=== PATIENT | male | born 1945 | race Caucasian/White ===

== ENCOUNTER 2017-09-14 13:43 | Inpatient (IN) ==
[2017-09-17 14:12] VITALS: BP 110/82
== END 2017-09-17 14:00 | disposition home or self-care (01) | DRG 378 ==
LOC: N.ED 13:43 → N.EDINP 15:31 → N.4E 16:35
PROVIDERS: ADMIT Family Medicine; ATTEND Family Medicine

== ENCOUNTER 2017-11-05 09:15 | Inpatient (IN) ==
[2017-11-05] MEDS ORDERED: PANTOPRAZOLE INJ 80 MG in SODIUM CHLORIDE 0.9% 100 ML IV STA (09:25)
[2017-11-05] MEDS ORDERED: SODIUM CHLORIDE 0.9% 1,000 ML IV STA (09:25)
[2017-11-05] MEDS ORDERED: PANTOPRAZOLE 40 MG VIAL IV ONE (09:53)
[2017-11-05 09:59] LABS: Basophils # 0.1 10*3/uL (0.0-0.2); Eosinophils # 0.1 10*3/uL (0.0-0.87); Hematocrit 32.6 VOL% (42.0-52.0); Hemoglobin 10.9 GM/DL (14.0-18.0); Immature Granulocytes % 7.7 %; Immature Granulocytes Absolute 0.47 #; Lymphocytes # 1.8 10*3/uL (1.4-4.0); Lymphocytes % 28.7 % (21.2-54.2); Mean Corpuscular HGB Conc 33.4 GM/DL (32-36); Mean Corpuscular Hemoglobin 30 PG (27-34); Mean Corpuscular Volume 90.8 FL (87-102); Monocytes # 0.9 10*3/uL (0.11-0.8); Monocytes % 15.1 % (1.7-12.7); Neutrophils # 2.9 10*3/uL (1.4-7.4); Neutrophils % 46.5 % (38.7-73.9); Platelet Count 130 T/CUMM (130-400); Red Blood Count 3.59 MC/CUMM (3.8-5.5); White Blood Count 6.1 T/CUMM (4-12)
[2017-11-05 10:12] LABS: INR 1.1; PT Patient Result 11.6 SECS; Partial Thromboplastin Time 26.6 SECS (0-40)
[2017-11-05 10:23] LABS: Albumin 3.5 G/DL (3.4-5.0); Bilirubin,Total 1.6 MG/DL (0.2-1.0); Calcium 8.9 MG/DL (8.5-10.1); Osmolality,Calculated 269.2 MOS/KG (273-304); Potassium 4.3 MMOL/L (3.5-5.1); Total Protein 7.9 G/DL (6.4-8.3)
[2017-11-05 10:48] LABS: Band Neutrophils 5 % (0-10); Eosinophils 2 % (0-10); Lymphocytes 28 % (20-55); Nucleated Red Blood Cells 1 (0-5); Platelet Estimate Adequate; Segmented Neutrophils 49 % (50-85); Total Cells Counted 100
[2017-11-05] MEDS ORDERED: ONDANSETRON 4 MG/2 ML VIAL IV PRN (10:48)
[2017-11-05] MEDS ORDERED: ACETAMINOPHEN 325 MG TABLET PO PRN (10:48)
[2017-11-05 10:49] LABS: Anisocytosis 1+; Macrocytosis Slight; Polychromasia Slight
[2017-11-05] MEDS ORDERED: SODIUM CHLORIDE 0.9% 1,000 ML IV PRN (10:53)
[2017-11-05 12:23] LABS: Hematocrit 29.8 VOL% (42.0-52.0); Hemoglobin 10.1 GM/DL (14.0-18.0)
[2017-11-05] MEDS: SODIUM CHLORIDE 0.9% 1,000 ML IV SCH ×2 (13:40→21:03)
[2017-11-05] MEDS: PANTOPRAZOLE INJ 200 MG in SODIUM CHLORIDE 0.9% 250 ML IV SCH (13:41)
[2017-11-05] MEDS: CARVEDILOL 3.125 MG TABLET PO SCH (21:03)
[2017-11-05] MEDS: DOCUSATE SODIUM 100 MG CAPSULE PO SCH (21:03)
[2017-11-06 01:01] LABS: Hematocrit 26.5 VOL% (42.0-52.0)
[2017-11-06] MEDS: SODIUM CHLORIDE 0.9% 1,000 ML IV SCH ×3 (05:07→18:29)
[2017-11-06 06:27] LABS: Hematocrit 26.4 VOL% (42.0-52.0); Hemoglobin 8.7 GM/DL (14.0-18.0)
[2017-11-06 06:28] LABS: Basophils % 0.8 % (0.0-0.8); Eosinophils % 0.8 % (0.00-10.9); Hematocrit 26.4 VOL% (42.0-52.0); Hemoglobin 8.8 GM/DL (14.0-18.0); Immature Granulocytes % 6.8 %; Immature Granulocytes Absolute 0.35 #; Lymphocytes # 1.5 10*3/uL (1.4-4.0); Lymphocytes % 28.4 % (21.2-54.2); Mean Corpuscular HGB Conc 33.3 GM/DL (32-36); Mean Corpuscular Hemoglobin 31 PG (27-34); Mean Corpuscular Volume 93.3 FL (87-102); Monocytes # 0.8 10*3/uL (0.11-0.8); Monocytes % 14.7 % (1.7-12.7); Neutrophils # 2.5 10*3/uL (1.4-7.4); Neutrophils % 48.5 % (38.7-73.9); Platelet Count 106 T/CUMM (130-400); Red Blood Count 2.83 MC/CUMM (3.8-5.5); Red Cell Distribution Width 15.4 % (9.3-17.3); White Blood Count 5.2 T/CUMM (4-12)
[2017-11-06 06:42] LABS: Calcium 8.2 MG/DL (8.5-10.1); Osmolality,Calculated 267.2 MOS/KG (273-304); Potassium 3.8 MMOL/L (3.5-5.1)
[2017-11-06 07:05] LABS: Band Neutrophils 1 % (0-10); Eosinophils 3 % (0-10); Lymphocytes 27 % (20-55); Nucleated Red Blood Cells 1 (0-5); Segmented Neutrophils 54 % (50-85); Total Cells Counted 100
[2017-11-06 07:06] LABS: Atypical Lymphocytes Few; Hypochromasia 1+; Macrocytosis Slight; Platelet Estimate Decreased
[2017-11-06] MEDS: MULTIVITAMIN (CENTRUM) TABLET PO SCH (08:49)
[2017-11-06] MEDS: POTASSIUM CHLORIDE 20 MEQ TABLET PO SCH (08:50)
[2017-11-06] MEDS: DOCUSATE SODIUM 100 MG CAPSULE PO SCH ×2 (08:50→23:24)
[2017-11-06] MEDS: SPIRONOLACTONE 25 MG TABLET PO SCH (08:50)
[2017-11-06] MEDS: CARVEDILOL 3.125 MG TABLET PO SCH ×2 (08:50→16:47)
[2017-11-06 12:20] LABS: Hematocrit 25.9 VOL% (42.0-52.0); Hemoglobin 8.5 GM/DL (14.0-18.0)
[2017-11-06] MEDS: PANTOPRAZOLE INJ 200 MG in SODIUM CHLORIDE 0.9% 250 ML IV SCH (14:15)
[2017-11-06 20:49] LABS: Hematocrit 33.3 VOL% (42.0-52.0)
[2017-11-07] MEDS: SODIUM CHLORIDE 0.9% 1,000 ML IV SCH ×2 (05:08→12:37)
[2017-11-07 05:16] LABS: Hematocrit 29.9 VOL% (42.0-52.0)
[2017-11-07] MEDS: MULTIVITAMIN (CENTRUM) TABLET PO SCH (08:26)
[2017-11-07] MEDS: DOCUSATE SODIUM 100 MG CAPSULE PO SCH ×2 (08:26→21:04)
[2017-11-07] MEDS: CARVEDILOL 3.125 MG TABLET PO SCH ×2 (08:26→17:29)
[2017-11-07] MEDS: SPIRONOLACTONE 25 MG TABLET PO SCH (08:26)
[2017-11-07] MEDS: POTASSIUM CHLORIDE 20 MEQ TABLET PO SCH (08:27)
[2017-11-07] MEDS ORDERED: LIDOCAINE 2% 5 ML VIAL ONE (09:00)
[2017-11-07] MEDS ORDERED: PROPOFOL 200 MG/20 ML VIAL IV ONE (09:00)
[2017-11-07] MEDS: PANTOPRAZOLE INJ 200 MG in SODIUM CHLORIDE 0.9% 250 ML IV SCH (12:37)
[2017-11-07] MEDS ORDERED: ALBUTEROL/IPRATROPIUM 3 ML NEB RESP TX ONE (13:08)
[2017-11-07 14:45] LABS: Basophils # 0.1 10*3/uL (0.0-0.2); Basophils % 0.6 % (0.0-0.8); Eosinophils % 0.3 % (0.00-10.9); Hematocrit 33.2 VOL% (42.0-52.0); Immature Granulocytes Absolute 0.54 #; Lymphocytes # 1.2 10*3/uL (1.4-4.0); Lymphocytes % 15.9 % (21.2-54.2); Mean Corpuscular HGB Conc 33.1 GM/DL (32-36); Mean Corpuscular Hemoglobin 31 PG (27-34); Mean Corpuscular Volume 93.3 FL (87-102); Mean Platelet Volume 11.1 FL (9.6-12.0); Monocytes % 12.3 % (1.7-12.7); Neutrophils # 4.9 10*3/uL (1.4-7.4); Neutrophils % 63.9 % (38.7-73.9); Platelet Count 105 T/CUMM (130-400); Red Blood Count 3.56 MC/CUMM (3.8-5.5); White Blood Count 7.7 T/CUMM (4-12)
[2017-11-07 15:22] LABS: Troponin I 0.043 NG/ML (0.00-0.045)
[2017-11-07 18:56] LABS: Anisocytosis 1+; Lymphocytes 14 % (20-55); Segmented Neutrophils 72 % (50-85); Total Cells Counted 100
[2017-11-07 18:58] LABS: Polychromasia Few
[2017-11-07 19:00] LABS: Schistocytes Slight
[2017-11-07 19:01] LABS: Burr Cells Slight
[2017-11-07 20:01] LABS: Hematocrit 31.3 VOL% (42.0-52.0); Hemoglobin 10.6 GM/DL (14.0-18.0)
[2017-11-08] MEDS: SODIUM CHLORIDE 0.9% 1,000 ML IV SCH ×3 (03:09→13:16)
[2017-11-08 04:39] LABS: Hematocrit 29.2 VOL% (42.0-52.0); Hemoglobin 9.6 GM/DL (14.0-18.0)
[2017-11-08] MEDS: SPIRONOLACTONE 25 MG TABLET PO SCH (09:30)
[2017-11-08] MEDS: CARVEDILOL 3.125 MG TABLET PO SCH ×2 (09:30→16:28)
[2017-11-08] MEDS: DOCUSATE SODIUM 100 MG CAPSULE PO SCH ×2 (09:30→21:41)
[2017-11-08] MEDS: POTASSIUM CHLORIDE 20 MEQ TABLET PO SCH (09:30)
[2017-11-08] MEDS: MULTIVITAMIN (CENTRUM) TABLET PO SCH (09:30)
[2017-11-08] MEDS: LORATADINE 10 MG TABLET PO SCH (16:19)
[2017-11-08] MEDS: PANTOPRAZOLE 40 MG VIAL IV SCH (21:41)
[2017-11-09 04:37] LABS: Basophils % 0.6 % (0.0-0.8); Eosinophils # 0.1 10*3/uL (0.0-0.87); Eosinophils % 1.2 % (0.00-10.9); Hemoglobin 9.2 GM/DL (14.0-18.0); Immature Granulocytes % 4.6 %; Immature Granulocytes Absolute 0.23 #; Lymphocytes # 1.6 10*3/uL (1.4-4.0); Lymphocytes % 31.7 % (21.2-54.2); Mean Corpuscular HGB Conc 32.9 GM/DL (32-36); Mean Corpuscular Hemoglobin 31 PG (27-34); Mean Platelet Volume 11.6 FL (9.6-12.0); Monocytes % 20.9 % (1.7-12.7); Platelet Count 95 T/CUMM (130-400); Red Blood Count 3.01 MC/CUMM (3.8-5.5)
[2017-11-09 05:06] LABS: Potassium 3.5 MMOL/L (3.5-5.1)
[2017-11-09 05:15] LABS: Lymphocytes 23 % (20-55); Platelet Estimate Decreased; Segmented Neutrophils 56 % (50-85); Total Cells Counted 100
[2017-11-09 05:16] LABS: Hypochromasia 1+
[2017-11-09] MEDS ORDERED: MAGNESIUM SULF RIDER 2 GM in PREMIX 1 EACH IV PRN (07:36)
[2017-11-09] MEDS ORDERED: MAGNESIUM SULF RIDER 4 GM in PREMIX 1 EACH IV PRN (07:36)
[2017-11-09] MEDS: SODIUM CHLORIDE 0.9% 1,000 ML IV SCH (07:50)
[2017-11-09] MEDS: POTASSIUM CHLORIDE 20 MEQ TABLET PO SCH (08:47)
[2017-11-09] MEDS: CARVEDILOL 3.125 MG TABLET PO SCH (08:47)
[2017-11-09] MEDS: SPIRONOLACTONE 25 MG TABLET PO SCH (08:47)
[2017-11-09] MEDS: LORATADINE 10 MG TABLET PO SCH (08:47)
[2017-11-09] MEDS: DOCUSATE SODIUM 100 MG CAPSULE PO SCH (08:47)
[2017-11-09] MEDS: MULTIVITAMIN (CENTRUM) TABLET PO SCH (08:47)
[2017-11-09] MEDS: PANTOPRAZOLE 40 MG VIAL IV SCH (08:58)
[2017-11-09] MEDS ORDERED: MAGNESIUM CHLORIDE 64 MG TABLET PO SCH (09:00)
[2017-11-09 11:31] VITALS: BP 122/75
== END 2017-11-09 11:58 | disposition home or self-care (01) | DRG 378 ==
LOC: N.ED 09:15 → N.EDINP 10:48 → N.TELES 11:52
PROVIDERS: ADMIT Family Medicine; ATTEND Family Medicine

== ENCOUNTER 2018-12-06 14:53 | Observation (INO) ==
[2018-12-06 15:38] LABS: Basophils # 0.1 10*3/uL (0.0-0.2); Basophils % 0.7 % (0.0-0.8); Eosinophils # 0.1 10*3/uL (0.0-0.87); Eosinophils % 0.7 % (0.00-10.9); Hematocrit 36.7 VOL% (42.0-52.0); Hemoglobin 11.9 GM/DL (14.0-18.0); Immature Granulocytes % 1.6 %; Immature Granulocytes Absolute 0.12 #; Lymphocytes # 1.7 10*3/uL (1.4-4.0); Lymphocytes % 22.8 % (21.2-54.2); Mean Corpuscular HGB Conc 32.4 GM/DL (32-36); Mean Corpuscular Volume 93.6 FL (87-102); Mean Platelet Volume 10.5 FL (9.6-12.0); Neutrophils % 64.2 % (38.7-73.9); Platelet Count 161 T/CUMM (130-400); Red Blood Count 3.92 MC/CUMM (3.8-5.5); Red Cell Distribution Width 17.2 % (9.3-17.3); White Blood Count 7.6 T/CUMM (4-12)
[2018-12-06 16:08] LABS: Apearance,Urine CLEAR (Clear); Bilirubin,Urine Negative (Negative); Blood, Urine Negative (Negative); Glucose,Urine (UA) Negative (Negative); Ketones,Urine Negative (Negative); Mucus,Urine Occasional /LPF (Occasional); Nitrite,Urine Negative (Negative); Protein,Urine Negative; RBC,Urine 1 /HPF (0-4); Squamous Epithelial Cell,Urine Occasional /HPF (0-10); Urine Color Amber (Yellow); Urine Specific Gravity 1.018 (1.001-1.035); WBC,Urine <1 /HPF (0-6)
[2018-12-06 16:15] LABS: Albumin 3.2 G/DL (3.4-5.0); Bilirubin,Total 1.8 MG/DL (0.2-1.0); Calcium 8.3 MG/DL (8.5-10.1); Osmolality,Calculated 265.2 MOS/KG (273-304); Total Protein 7.9 G/DL (6.4-8.3)
[2018-12-06 17:31] LABS: Troponin I < 0.015 NG/ML (0.00-0.045)
[2018-12-06] MEDS ORDERED: ONDANSETRON 4 MG/2 ML VIAL IV PRN (17:45)
[2018-12-06] MEDS ORDERED: ACETAMINOPHEN 325 MG TABLET PO PRN (17:45)
[2018-12-06] MEDS ORDERED: KETOROLAC 30 MG/1 ML VIAL IV ONE (17:49)
[2018-12-06] MEDS ORDERED: POLYETHYLENE GLYCOL POWDER 17 GM PACK PO PRN (19:19)
[2018-12-06] MEDS ORDERED: ENOXAPARIN 40 MG/0.4 ML SYRINGE SUBCUT SCH (21:00)
[2018-12-07 03:00] LABS: Basophils % 0.5 % (0.0-0.8); Eosinophils # 0.1 10*3/uL (0.0-0.87); Eosinophils % 1.1 % (0.00-10.9); Hematocrit 33.5 VOL% (42.0-52.0); Immature Granulocytes % 1.5 %; Immature Granulocytes Absolute 0.11 #; Lymphocytes # 1.9 10*3/uL (1.4-4.0); Lymphocytes % 25.6 % (21.2-54.2); Mean Corpuscular HGB Conc 32.8 GM/DL (32-36); Mean Corpuscular Volume 92.3 FL (87-102); Mean Platelet Volume 10.6 FL (9.6-12.0); Monocytes % 9.1 % (1.7-12.7); Neutrophils % 62.2 % (38.7-73.9); Platelet Count 134 T/CUMM (130-400); Red Blood Count 3.63 MC/CUMM (3.8-5.5); Red Cell Distribution Width 16.9 % (9.3-17.3); White Blood Count 7.3 T/CUMM (4-12)
[2018-12-07 03:20] LABS: Osmolality,Calculated 265.2 MOS/KG (273-304)
[2018-12-07 08:09] VITALS: BP 133/74
[2018-12-07] MEDS ORDERED: PANTOPRAZOLE 40 MG TABLET PO SCH (09:00)
[2018-12-07] MEDS ORDERED: POTASSIUM CHLORIDE 20 MEQ TABLET PO SCH (09:00)
[2018-12-07] MEDS ORDERED: SPIRONOLACTONE 25 MG TABLET PO SCH (09:00)
[2018-12-07] MEDS ORDERED: carvediloL 3.125 MG TABLET PO SCH (09:00)
== END 2018-12-07 10:55 | disposition home or self-care (01) ==
LOC: N.EDINP 14:53 → N.ED 14:53 → N.2W 18:04
PROVIDERS: ADMIT Internal Medicine Geriatric Medicine; ATTEND Internal Medicine Geriatric Medicine

== ENCOUNTER 2019-01-24 00:25 | Inpatient (IN) ==
[2019-01-24 01:27] LABS: Basophils # 0.1 10*3/uL (0.0-0.2); Basophils % 0.2 % (0.0-0.8); Eosinophils % 0.1 % (0.00-10.9); Hematocrit 38.8 VOL% (42.0-52.0); Hemoglobin 12.9 GM/DL (14.0-18.0); Immature Granulocytes % 1.1 %; Immature Granulocytes Absolute 0.23 #; Lymphocytes # 0.4 10*3/uL (1.4-4.0); Lymphocytes % 1.7 % (21.2-54.2); Mean Corpuscular HGB Conc 33.2 GM/DL (32-36); Mean Corpuscular Volume 91.9 FL (87-102); Mean Platelet Volume 10.1 FL (9.6-12.0); Neutrophils % 95.9 % (38.7-73.9); Platelet Count 121 T/CUMM (130-400); Red Blood Count 4.22 MC/CUMM (3.8-5.5); White Blood Count 21.7 T/CUMM (4-12)
[2019-01-24 01:45] LABS: Albumin 3.3 G/DL (3.4-5.0); Bilirubin,Total 8.6 MG/DL (0.2-1.0); Calcium 8.1 MG/DL (8.5-10.1); Osmolality,Calculated 262.7 MOS/KG (273-304); Total Protein 7.5 G/DL (6.4-8.3)
[2019-01-24] MEDS ORDERED: LACTATED RINGERS 1,000 ML IV ONE (01:51)
[2019-01-24] MEDS ORDERED: SODIUM CHLORIDE 0.9% 1,000 ML IV STA (01:55)
[2019-01-24] MEDS ORDERED: SODIUM BICARBONATE 50 MEQ/50 ML VIAL IV ONE (01:56)
[2019-01-24] MEDS ORDERED: SODIUM BICARBONATE 50 MEQ/50 ML VIAL IV STA (01:56)
[2019-01-24] MEDS ORDERED: PIPERACILLIN/TAZOBACTAM 3,375 MG in SODIUM CHLORIDE 0.9% 100 ML IV STA (03:07)
[2019-01-24] MEDS ORDERED: ONDANSETRON 4 MG/2 ML VIAL IV STA (03:19)
[2019-01-24] MEDS ORDERED: HYDROmorphone 2 MG/1 ML VIAL IV ONE (03:19)
[2019-01-24] MEDS ORDERED: ONDANSETRON 4 MG/2 ML VIAL ONE (03:20)
[2019-01-24] MEDS ORDERED: HYDROmorphone 2 MG/1 ML VIAL ONE (03:20)
[2019-01-24] MEDS ORDERED: ALUM/MAG/SIMETH/LIDO VISC 1:1 30 ML BOTTLE PO ONE (03:21)
[2019-01-24 03:33] LABS: Apearance,Urine CLEAR (Clear); Blood, Urine Small mg/dL (Negative); Glucose,Urine (UA) Negative (Negative); Hyaline Casts,Urine 11 /LPF (0-3); Ketones,Urine Negative (Negative); Mucus,Urine Occasional /LPF (Occasional); Nitrite,Urine Negative (Negative); Protein,Urine Negative; RBC,Urine 5 /HPF (0-4); Squamous Epithelial Cell,Urine Occasional /HPF (0-10); Urine Color Amber (Yellow); Urine Specific Gravity 1.048 (1.001-1.035); WBC,Urine 14 /HPF (0-6)
[2019-01-24 03:36] LABS: Bilirubin,Urine Small mg/dL (Negative)
[2019-01-24] MEDS ORDERED: ONDANSETRON 4 MG/2 ML VIAL IV PRN (03:45)
[2019-01-24] MEDS ORDERED: POLYETHYLENE GLYCOL POWDER 17 GM PACK PO PRN (03:45)
[2019-01-24] MEDS ORDERED: ACETAMINOPHEN 325 MG TABLET PO PRN (03:45)
[2019-01-24 03:53] LABS: Hypochromasia 1+; Lymphocytes 1 % (20-55); Platelet Estimate Decreased; Polychromasia Few; Segmented Neutrophils 98 % (50-85); Total Cells Counted 100
[2019-01-24] MEDS: SODIUM CHLORIDE 0.9% 1,000 ML IV SCH ×2 (04:26→18:00)
[2019-01-24 05:34] LABS: Basophils % 0.2 % (0.0-0.8); Eosinophils % 0.1 % (0.00-10.9); Hematocrit 34.5 VOL% (42.0-52.0); Hemoglobin 11.4 GM/DL (14.0-18.0); Immature Granulocytes % 0.9 %; Immature Granulocytes Absolute 0.17 #; Lymphocytes # 0.7 10*3/uL (1.4-4.0); Lymphocytes % 3.5 % (21.2-54.2); Mean Platelet Volume 10.5 FL (9.6-12.0); Neutrophils % 92.3 % (38.7-73.9); Platelet Count 101 T/CUMM (130-400); Red Blood Count 3.75 MC/CUMM (3.8-5.5); Red Cell Distribution Width 16.9 % (9.3-17.3); White Blood Count 19.2 T/CUMM (4-12)
[2019-01-24 05:56] LABS: Band Neutrophils 1 % (0-10); Lymphocytes 4 % (20-55); Segmented Neutrophils 93 % (50-85); Total Cells Counted 100
[2019-01-24 05:58] LABS: Hypochromasia 1+; Platelet Estimate Decreased
[2019-01-24 06:04] LABS: Albumin 2.7 G/DL (3.4-5.0); Bilirubin,Total 7.5 MG/DL (0.2-1.0); Calcium 7.2 MG/DL (8.5-10.1); Osmolality,Calculated 266.4 MOS/KG (273-304); Risk Ratio 1.46; Total Protein 6.2 G/DL (6.4-8.3); VLDL CHOLESTEROL 9.4 MG/DL
[2019-01-24 06:05] LABS: Troponin I < 0.015 NG/ML (0.00-0.045)
[2019-01-24] MEDS ORDERED: PANTOPRAZOLE 40 MG TABLET PO SCH (09:00)
[2019-01-24] MEDS: ENOXAPARIN 40 MG/0.4 ML SYRINGE SUBCUT SCH (09:07)
[2019-01-24] MEDS: carvediloL 3.125 MG TABLET PO SCH ×2 (09:07→17:27)
[2019-01-24] MEDS: PANTOPRAZOLE 40 MG TABLET PO SCH (09:07)
[2019-01-24] MEDS: POTASSIUM CHLORIDE 20 MEQ TABLET PO SCH (09:07)
[2019-01-24] MEDS: SPIRONOLACTONE 25 MG TABLET PO SCH (09:07)
[2019-01-24] MEDS: DOCUSATE SODIUM 100 MG CAPSULE PO SCH ×2 (09:07→20:28)
[2019-01-24] MEDS: PIPERACILLIN/TAZOBACTAM 3,375 MG in SODIUM CHLORIDE 0.9% 100 ML IV SCH ×2 (11:35→20:29)
[2019-01-24] MEDS: HYDROmorphone 2 MG/1 ML VIAL IV PRN ×2 (18:49→23:49)
[2019-01-25] MEDS: PIPERACILLIN/TAZOBACTAM 3,375 MG in SODIUM CHLORIDE 0.9% 100 ML IV SCH ×3 (04:26→20:06)
[2019-01-25] MEDS: LORazepam 2 MG/1 ML VIAL IV PRN ×2 (05:54→17:57)
[2019-01-25] MEDS: HYDROmorphone 2 MG/1 ML VIAL IV PRN ×3 (05:54→17:57)
[2019-01-25 06:19] LABS: Albumin 2.5 G/DL (3.4-5.0); Bilirubin,Direct 4.57 MG/DL (0.0-0.20); Bilirubin,Indirect 2.1 MG/DL (0.0-1.0); Bilirubin,Total 6.7 MG/DL (0.2-1.0); Total Protein 6.4 G/DL (6.4-8.3)
[2019-01-25] MEDS ORDERED: MAGNESIUM SULF RIDER 4 GM in PREMIX 1 EACH IV ONE (06:43)
[2019-01-25] MEDS: SODIUM CHLORIDE 0.9% 1,000 ML IV SCH ×2 (07:22→20:20)
[2019-01-25] MEDS: PANTOPRAZOLE 40 MG TABLET PO SCH (09:05)
[2019-01-25] MEDS: SPIRONOLACTONE 25 MG TABLET PO SCH (09:05)
[2019-01-25] MEDS: POTASSIUM CHLORIDE 20 MEQ TABLET PO SCH (09:05)
[2019-01-25] MEDS: carvediloL 3.125 MG TABLET PO SCH ×2 (09:05→16:42)
[2019-01-25] MEDS: DOCUSATE SODIUM 100 MG CAPSULE PO SCH ×2 (09:06→21:25)
[2019-01-25] MEDS: ENOXAPARIN 40 MG/0.4 ML SYRINGE SUBCUT SCH (09:06)
[2019-01-25] MEDS: THIAMINE 200 MG/2 ML VIAL IV SCH (09:06)
[2019-01-25 09:07] LABS: Basophils % 0.3 % (0.0-0.8); Eosinophils % 0.2 % (0.00-10.9); Hematocrit 34.8 VOL% (42.0-52.0); Hemoglobin 11.3 GM/DL (14.0-18.0); Immature Granulocytes Absolute 0.09 #; Lymphocytes # 0.7 10*3/uL (1.4-4.0); Lymphocytes % 7.6 % (21.2-54.2); Mean Corpuscular HGB Conc 32.5 GM/DL (32-36); Mean Corpuscular Volume 93.8 FL (87-102); Mean Platelet Volume 11.1 FL (9.6-12.0); Monocytes % 2.9 % (1.7-12.7); Red Blood Count 3.71 MC/CUMM (3.8-5.5); Red Cell Distribution Width 17.2 % (9.3-17.3)
[2019-01-25 09:12] LABS: Platelet Count 91 T/CUMM (130-400); White Blood Count 9.1 T/CUMM (4-12)
[2019-01-25 09:17] LABS: INR 1.2; PT Patient Result 12.5 SECS (9.6-12.2)
[2019-01-25 09:34] LABS: Calcium 7.4 MG/DL (8.5-10.1); Osmolality,Calculated 269.1 MOS/KG (273-304)
[2019-01-25 09:46] LABS: Hypochromasia Slight; Microcytosis Slight
[2019-01-25 11:01] LABS: Hepatitis B Core IgM Quant < 0.05 Index; Hepatitis B Surface Ag Quant 0.11 Index; Hepatitis B Surface Ag Result Negative (Negative); Hepatitis C Virus Ab Quant 0.21 Index; Hepatitis C Virus Ab Result Negative (Negative)
[2019-01-26] MEDS: PIPERACILLIN/TAZOBACTAM 3,375 MG in SODIUM CHLORIDE 0.9% 100 ML IV SCH ×3 (04:05→20:01)
[2019-01-26] MEDS: LORazepam 2 MG/1 ML VIAL IV PRN (07:50)
[2019-01-26] MEDS: HYDROmorphone 2 MG/1 ML VIAL IV PRN ×2 (07:54→19:24)
[2019-01-26] MEDS: THIAMINE 200 MG/2 ML VIAL IV SCH (09:20)
[2019-01-26] MEDS: ENOXAPARIN 40 MG/0.4 ML SYRINGE SUBCUT SCH (09:20)
[2019-01-26] MEDS: POTASSIUM CHLORIDE 20 MEQ TABLET PO SCH (09:20)
[2019-01-26] MEDS: DOCUSATE SODIUM 100 MG CAPSULE PO SCH ×2 (09:20→20:01)
[2019-01-26] MEDS: SPIRONOLACTONE 25 MG TABLET PO SCH (09:20)
[2019-01-26] MEDS: carvediloL 3.125 MG TABLET PO SCH ×2 (09:20→16:28)
[2019-01-26] MEDS: PANTOPRAZOLE 40 MG TABLET PO SCH (09:26)
[2019-01-26] MEDS: SODIUM CHLORIDE 0.9% 1,000 ML IV SCH ×2 (11:41→22:27)
[2019-01-27] MEDS: PIPERACILLIN/TAZOBACTAM 3,375 MG in SODIUM CHLORIDE 0.9% 100 ML IV SCH ×3 (04:09→19:46)
[2019-01-27 05:06] LABS: Basophils % 0.5 % (0.0-0.8); Eosinophils # 0.1 10*3/uL (0.0-0.87); Eosinophils % 1.5 % (0.00-10.9); Hemoglobin 10.8 GM/DL (14.0-18.0); Immature Granulocytes % 2.4 %; Lymphocytes # 0.9 10*3/uL (1.4-4.0); Mean Corpuscular HGB Conc 32.7 GM/DL (32-36); Mean Corpuscular Volume 92.7 FL (87-102); Mean Platelet Volume 10.7 FL (9.6-12.0); Monocytes % 7.7 % (1.7-12.7); Neutrophils % 65.9 % (38.7-73.9); Platelet Count 103 T/CUMM (130-400); Red Blood Count 3.56 MC/CUMM (3.8-5.5); Red Cell Distribution Width 16.7 % (9.3-17.3); White Blood Count 4.1 T/CUMM (4-12)
[2019-01-27 05:37] LABS: Albumin 2.5 G/DL (3.4-5.0); Bilirubin,Direct 4.52 MG/DL (0.0-0.20); Bilirubin,Indirect 1.4 MG/DL (0.0-1.0); Bilirubin,Total 5.9 MG/DL (0.2-1.0); Total Protein 6.6 G/DL (6.4-8.3)
[2019-01-27] MEDS: SPIRONOLACTONE 25 MG TABLET PO SCH (09:07)
[2019-01-27] MEDS: POTASSIUM CHLORIDE 20 MEQ TABLET PO SCH (09:07)
[2019-01-27] MEDS: THIAMINE 200 MG/2 ML VIAL IV SCH (09:07)
[2019-01-27] MEDS: carvediloL 3.125 MG TABLET PO SCH ×2 (09:07→16:40)
[2019-01-27] MEDS: PANTOPRAZOLE 40 MG TABLET PO SCH (09:07)
[2019-01-27] MEDS: DOCUSATE SODIUM 100 MG CAPSULE PO SCH ×2 (09:07→20:00)
[2019-01-27] MEDS: ENOXAPARIN 40 MG/0.4 ML SYRINGE SUBCUT SCH (09:07)
[2019-01-27] MEDS ORDERED: CLORAZEPATE 3.75 MG TABLET PO PRN (11:51)
[2019-01-27] MEDS: SODIUM CHLORIDE 0.9% 1,000 ML IV SCH (12:57)
[2019-01-28] MEDS: SODIUM CHLORIDE 0.9% 1,000 ML IV SCH ×2 (01:34→18:58)
[2019-01-28] MEDS: PIPERACILLIN/TAZOBACTAM 3,375 MG in SODIUM CHLORIDE 0.9% 100 ML IV SCH ×3 (03:38→20:38)
[2019-01-28 05:47] LABS: INR 1.1; PT Patient Result 11.6 SECS (9.6-12.2)
[2019-01-28] MEDS: carvediloL 3.125 MG TABLET PO SCH ×2 (10:24→17:10)
[2019-01-28] MEDS: SPIRONOLACTONE 25 MG TABLET PO SCH (10:24)
[2019-01-28] MEDS: ENOXAPARIN 40 MG/0.4 ML SYRINGE SUBCUT SCH (10:25)
[2019-01-28] MEDS: DOCUSATE SODIUM 100 MG CAPSULE PO SCH ×2 (10:25→20:39)
[2019-01-28] MEDS: POTASSIUM CHLORIDE 20 MEQ TABLET PO SCH (10:25)
[2019-01-28] MEDS: PANTOPRAZOLE 40 MG TABLET PO SCH (10:25)
[2019-01-28] MEDS: THIAMINE 200 MG/2 ML VIAL IV SCH (10:29)
[2019-01-29] MEDS: PIPERACILLIN/TAZOBACTAM 3,375 MG in SODIUM CHLORIDE 0.9% 100 ML IV SCH ×2 (03:34→14:36)
[2019-01-29] MEDS: SODIUM CHLORIDE 0.9% 1,000 ML IV SCH (03:37)
[2019-01-29 07:45] LABS: Calcium 8.2 MG/DL (8.5-10.1); Osmolality,Calculated 268.8 MOS/KG (273-304)
[2019-01-29] MEDS ORDERED: MAGNESIUM SULF RIDER 4 GM in PREMIX 1 EACH IV ONE (08:05)
[2019-01-29] MEDS: THIAMINE 200 MG/2 ML VIAL IV SCH (08:31)
[2019-01-29] MEDS: carvediloL 3.125 MG TABLET PO SCH (08:31)
[2019-01-29] MEDS: ENOXAPARIN 40 MG/0.4 ML SYRINGE SUBCUT SCH (08:31)
[2019-01-29] MEDS: POTASSIUM CHLORIDE 20 MEQ TABLET PO SCH (08:31)
[2019-01-29] MEDS: PANTOPRAZOLE 40 MG TABLET PO SCH (08:31)
[2019-01-29] MEDS: DOCUSATE SODIUM 100 MG CAPSULE PO SCH (08:31)
[2019-01-29] MEDS: SPIRONOLACTONE 25 MG TABLET PO SCH (08:31)
[2019-01-29] MEDS ORDERED: MAGNESIUM OXIDE 400 MG TABLET PO SCH (09:00)
[2019-01-29] MEDS ORDERED: LIDOCAINE 2% 5 ML VIAL ONE (13:08)
[2019-01-29] MEDS ORDERED: PROPOFOL 200 MG/20 ML VIAL IV ONE (13:08)
[2019-01-29 17:10] VITALS: BP 138/78
== END 2019-01-29 18:13 | disposition home or self-care (01) | DRG 445 ==
LOC: N.ED 00:25 → N.EDINP 03:22 → N.CC 03:44 → N.TELEN 01-25 17:35
PROVIDERS: ADMIT Family Medicine; ATTEND Family Medicine

== ENCOUNTER 2019-08-09 10:07 | Inpatient (IN) ==
[2019-08-09 10:45] LABS: Basophils % 0.3 % (0.0-0.8); Eosinophils % 0.1 % (0.00-10.9); Hemoglobin 12.7 GM/DL (14.0-18.0); Immature Granulocytes % 0.8 %; Immature Granulocytes Absolute 0.11 #; Lymphocytes # 0.5 10*3/uL (1.4-4.0); Lymphocytes % 3.9 % (21.2-54.2); Mean Corpuscular HGB Conc 33.4 GM/DL (32-36); Mean Corpuscular Volume 88.4 FL (87-102); Neutrophils % 91.9 % (38.7-73.9); Platelet Count 138 T/CUMM (130-400); Red Cell Distribution Width 14.9 % (9.3-17.3); White Blood Count 13.9 T/CUMM (4-12)
[2019-08-09 10:52] LABS: Apearance,Urine CLEAR (Clear); Bacteria,Urine Occasional /HPF (Few); Blood, Urine Small mg/dL (Negative); Glucose,Urine (UA) Negative (Negative); Ketones,Urine Negative (Negative); Mucus,Urine Occasional /LPF (Occasional); Nitrite,Urine Negative (Negative); Protein,Urine 30 MG/DL; RBC,Urine 2 /HPF (0-4); Squamous Epithelial Cell,Urine Occasional /HPF (0-10); Urine Color Amber (Yellow); WBC,Urine 13 /HPF (0-6)
[2019-08-09 10:54] LABS: Bilirubin,Urine Moderate mg/dL (Negative)
[2019-08-09 11:12] LABS: Albumin 3.5 G/DL (3.4-5.0); Bilirubin,Total 9.3 MG/DL (0.2-1.0); Calcium 8.5 MG/DL (8.5-10.1); Osmolality,Calculated 262.1 MOS/KG (273-304); Total Protein 7.5 G/DL (6.4-8.3)
[2019-08-09] MEDS ORDERED: SODIUM CHLORIDE 0.9% 1,000 ML IV STA (11:17)
[2019-08-09 11:39] LABS: Barbiturates Screen,Urine Negative (Negative); Benzodiazepines Screen,Urine Negative (Negative); Cannabinoid Screen,Urine Negative (Negative); Opiate Screen,Urine Negative (Negative); Phencyclidine Screen,Urine Negative (Negative)
[2019-08-09 12:00] LABS: Lymphocytes 5 % (20-55); Platelet Estimate Adequate; Segmented Neutrophils 92 % (50-85); Total Cells Counted 100
[2019-08-09 12:01] LABS: Polychromasia Few
[2019-08-09] MEDS ORDERED: MAGNESIUM SULF RIDER 1 GM in PREMIX 1 EACH IV STA (12:14)
[2019-08-09] MEDS ORDERED: PIPERACILLIN/TAZOBACTAM 3,375 MG in SODIUM CHLORIDE 0.9% 100 ML IV STA (12:18)
[2019-08-09] MEDS ORDERED: DEXTROSE 10% 250 ML BAG IV PRN (14:24)
[2019-08-09] MEDS ORDERED: MORPHINE 4 MG/1 ML VIAL IV PRN (14:24)
[2019-08-09] MEDS ORDERED: GLUCAGON 1 MG VIAL IM PRN (14:24)
[2019-08-09] MEDS ORDERED: ONDANSETRON 4 MG/2 ML VIAL IV PRN (14:24)
[2019-08-09] MEDS: SODIUM CHLORIDE 0.9% 1,000 ML IV SCH (14:45)
[2019-08-09] MEDS: ENOXAPARIN 30 MG/0.3 ML SYRINGE SUBCUT SCH (14:45)
[2019-08-09] MEDS: LORazepam 2 MG/1 ML VIAL IV PRN (18:25)
[2019-08-09] MEDS: PIPERACILLIN/TAZOBACTAM 3,375 MG in SODIUM CHLORIDE 0.9% 100 ML IV SCH (20:52)
[2019-08-10] MEDS: SODIUM CHLORIDE 0.9% 1,000 ML IV SCH ×3 (03:41→20:13)
[2019-08-10] MEDS: PIPERACILLIN/TAZOBACTAM 3,375 MG in SODIUM CHLORIDE 0.9% 100 ML IV SCH ×2 (04:44→15:58)
[2019-08-10 06:15] LABS: Basophils % 0.6 % (0.0-0.8); Eosinophils % 0.3 % (0.00-10.9); Hematocrit 35.1 VOL% (42.0-52.0); Hemoglobin 11.6 GM/DL (14.0-18.0); Immature Granulocytes % 1.6 %; Immature Granulocytes Absolute 0.11 #; Lymphocytes % 14.7 % (21.2-54.2); Mean Corpuscular Volume 88.2 FL (87-102); Mean Platelet Volume 11.2 FL (9.6-12.0); Monocytes % 6.2 % (1.7-12.7); Neutrophils % 76.6 % (38.7-73.9); Platelet Count 117 T/CUMM (130-400); Red Blood Count 3.98 MC/CUMM (3.8-5.5); Red Cell Distribution Width 15.3 % (9.3-17.3); White Blood Count 6.9 T/CUMM (4-12)
[2019-08-10 06:24] LABS: Albumin 2.7 G/DL (3.4-5.0); Bilirubin,Total 9.8 MG/DL (0.2-1.0); Calcium 8.2 MG/DL (8.5-10.1); Osmolality,Calculated 261.8 MOS/KG (273-304); Risk Ratio 5.92; VLDL CHOLESTEROL 28.2 MG/DL
[2019-08-10 06:54] LABS: Anisocytosis 1+; Band Neutrophils 5 % (0-10); Lymphocytes 19 % (20-55); Platelet Estimate Adequate; Segmented Neutrophils 72 % (50-85); Total Cells Counted 100
[2019-08-10 06:55] LABS: Macrocytosis Slight
[2019-08-10] MEDS: THIAMINE 200 MG/2 ML VIAL IM SCH (09:52)
[2019-08-10] MEDS ORDERED: MAGNESIUM SULF RIDER 2 GM in PREMIX 1 EACH IV ONE (10:13)
[2019-08-10] MEDS ORDERED: POTASSIUM CHLORIDE RIDER 20 MEQ in PREMIX 1 EACH IV PRN (10:13)
[2019-08-10 11:23] LABS: INR 1.2; Partial Thromboplastin Time 34.6 SECS (23.9-33.8)
[2019-08-10] MEDS: ENOXAPARIN 30 MG/0.3 ML SYRINGE SUBCUT SCH (15:58)
[2019-08-10] MEDS: carvediloL 3.125 MG TABLET PO SCH (20:15)
[2019-08-10] MEDS: POTASSIUM CHLORIDE RIDER 10 MEQ in PREMIX 1 EACH IV PRN ×4 (20:15→23:17)
[2019-08-11] MEDS: PIPERACILLIN/TAZOBACTAM 3,375 MG in SODIUM CHLORIDE 0.9% 100 ML IV SCH ×3 (00:20→16:52)
[2019-08-11 03:51] LABS: Basophils % 0.7 % (0.0-0.8); Eosinophils # 0.1 10*3/uL (0.0-0.87); Hematocrit 32.5 VOL% (42.0-52.0); Immature Granulocytes % 2.2 %; Immature Granulocytes Absolute 0.13 #; Lymphocytes % 16.8 % (21.2-54.2); Mean Corpuscular HGB Conc 33.8 GM/DL (32-36); Mean Corpuscular Volume 87.4 FL (87-102); Mean Platelet Volume 11.5 FL (9.6-12.0); Monocytes % 7.9 % (1.7-12.7); Neutrophils % 71.4 % (38.7-73.9); Platelet Count 136 T/CUMM (130-400); Red Blood Count 3.72 MC/CUMM (3.8-5.5); Red Cell Distribution Width 15.1 % (9.3-17.3); White Blood Count 5.8 T/CUMM (4-12)
[2019-08-11 03:59] LABS: INR 1.1; PT Patient Result 11.8 SECS (9.8-11.9); Partial Thromboplastin Time 32.9 SECS (23.9-33.8)
[2019-08-11] MEDS: SODIUM CHLORIDE 0.9% 1,000 ML IV SCH ×4 (04:01→21:02)
[2019-08-11 04:06] LABS: Albumin 2.5 G/DL (3.4-5.0); Bilirubin,Total 8.4 MG/DL (0.2-1.0); Osmolality,Calculated 257.9 MOS/KG (273-304); Total Protein 6.6 G/DL (6.4-8.3)
[2019-08-11] MEDS: POTASSIUM CHLORIDE RIDER 10 MEQ in PREMIX 1 EACH IV PRN ×4 (04:34→12:54)
[2019-08-11] MEDS: THIAMINE 200 MG/2 ML VIAL IM SCH (09:00)
[2019-08-11] MEDS: PANTOPRAZOLE 40 MG TABLET PO SCH (09:00)
[2019-08-11] MEDS: POTASSIUM CHLORIDE 20 MEQ TABLET PO SCH (09:00)
[2019-08-11] MEDS: MAGNESIUM OXIDE 400 MG TABLET PO SCH (09:00)
[2019-08-11] MEDS: carvediloL 3.125 MG TABLET PO SCH ×2 (09:00→21:01)
[2019-08-11] MEDS: SPIRONOLACTONE 25 MG TABLET PO SCH (09:00)
[2019-08-11] MEDS: ENOXAPARIN 30 MG/0.3 ML SYRINGE SUBCUT SCH (15:27)
[2019-08-11] MEDS: LORazepam 2 MG/1 ML VIAL IV PRN (21:03)
[2019-08-12] MEDS: PIPERACILLIN/TAZOBACTAM 3,375 MG in SODIUM CHLORIDE 0.9% 100 ML IV SCH ×4 (00:47→23:05)
[2019-08-12] MEDS: SODIUM CHLORIDE 0.9% 1,000 ML IV SCH ×4 (05:34→23:09)
[2019-08-12 08:38] LABS: Calcium 8.4 MG/DL (8.5-10.1); Osmolality,Calculated 259.7 MOS/KG (273-304)
[2019-08-12] MEDS: carvediloL 3.125 MG TABLET PO SCH ×2 (08:59→21:21)
[2019-08-12] MEDS ORDERED: ONDANSETRON 4 MG/2 ML VIAL ONE (09:00)
[2019-08-12] MEDS ORDERED: ATROPINE 1 MG/10 ML SYRINGE ONE (09:00)
[2019-08-12] MEDS ORDERED: ROCURONIUM 100 MG/10 ML VIAL IV ONE (09:00)
[2019-08-12] MEDS ORDERED: PHENYLEPHRINE 1 MG/10 ML SYRINGE IV ONE (09:00)
[2019-08-12] MEDS ORDERED: SUCCINYLCHOLINE 200 MG/10 ML VIAL ONE (09:00)
[2019-08-12] MEDS ORDERED: GLYCOPYRROLATE 0.4 MG/2 ML VIAL ONE (09:00)
[2019-08-12] MEDS ORDERED: propofoL 200 MG/20 ML VIAL IV ONE (09:00)
[2019-08-12] MEDS ORDERED: LIDOCAINE 2% 5 ML VIAL ONE (09:00)
[2019-08-12] MEDS ORDERED: DEXAMETHASONE 4 MG/1 ML VIAL ONE (09:00)
[2019-08-12 09:51] LABS: Calcium 8.2 MG/DL (8.5-10.1); Osmolality,Calculated 259.7 MOS/KG (273-304)
[2019-08-12 10:16] LABS: Troponin I < 0.015 NG/ML (0.00-0.045)
[2019-08-12] MEDS ORDERED: INDOMETHACIN SUPP 50 MG SUPP RECTAL ONE ×2 (12:22→13:22)
[2019-08-12] MEDS ORDERED: fentaNYL 100 MCG/2 ML VIAL ONE (12:58)
[2019-08-12] MEDS ORDERED: SEVOFLURANE 1 UNIT/15 MINUTE INH ONE (14:14)
[2019-08-12] MEDS: SPIRONOLACTONE 25 MG TABLET PO SCH (15:33)
[2019-08-12] MEDS: POTASSIUM CHLORIDE 20 MEQ TABLET PO SCH (15:33)
[2019-08-12] MEDS: MAGNESIUM OXIDE 400 MG TABLET PO SCH (15:34)
[2019-08-12] MEDS: THIAMINE 200 MG/2 ML VIAL IM SCH (15:34)
[2019-08-12] MEDS: PANTOPRAZOLE 40 MG TABLET PO SCH (15:34)
[2019-08-12] MEDS: ENOXAPARIN 30 MG/0.3 ML SYRINGE SUBCUT SCH (16:15)
[2019-08-13] MEDS: SOTALOL 80 MG TABLET PO SCH ×2 (08:53→20:58)
[2019-08-13] MEDS: MAGNESIUM OXIDE 400 MG TABLET PO SCH (08:54)
[2019-08-13] MEDS: POTASSIUM CHLORIDE 20 MEQ TABLET PO SCH (08:55)
[2019-08-13] MEDS: carvediloL 3.125 MG TABLET PO SCH ×2 (08:55→21:00)
[2019-08-13] MEDS: SPIRONOLACTONE 25 MG TABLET PO SCH (08:55)
[2019-08-13] MEDS: THIAMINE 200 MG/2 ML VIAL IM SCH (08:56)
[2019-08-13] MEDS: PANTOPRAZOLE 40 MG TABLET PO SCH (08:56)
[2019-08-13] MEDS: PIPERACILLIN/TAZOBACTAM 3,375 MG in SODIUM CHLORIDE 0.9% 100 ML IV SCH ×2 (08:58→15:12)
[2019-08-13] MEDS: SODIUM CHLORIDE 0.9% 1,000 ML IV SCH ×2 (09:06→21:01)
[2019-08-13 10:21] LABS: Albumin 2.8 G/DL (3.4-5.0); Bilirubin,Direct 3.56 MG/DL (0.0-0.20); Bilirubin,Indirect 2.4 MG/DL (0.0-1.0); Total Protein 7.4 G/DL (6.4-8.3)
[2019-08-13] MEDS: ENOXAPARIN 30 MG/0.3 ML SYRINGE SUBCUT SCH (15:11)
[2019-08-14] MEDS: PIPERACILLIN/TAZOBACTAM 3,375 MG in SODIUM CHLORIDE 0.9% 100 ML IV SCH ×4 (00:02→23:23)
[2019-08-14 07:33] LABS: Albumin 2.6 G/DL (3.4-5.0); Bilirubin,Total 3.6 MG/DL (0.2-1.0); Calcium 8.2 MG/DL (8.5-10.1); Osmolality,Calculated 266.2 MOS/KG (273-304); Total Protein 6.7 G/DL (6.4-8.3)
[2019-08-14] MEDS: POTASSIUM CHLORIDE 20 MEQ TABLET PO SCH (10:18)
[2019-08-14] MEDS: SOTALOL 80 MG TABLET PO SCH ×2 (10:18→20:34)
[2019-08-14] MEDS: SPIRONOLACTONE 25 MG TABLET PO SCH (10:18)
[2019-08-14] MEDS: THIAMINE 200 MG/2 ML VIAL IM SCH (10:18)
[2019-08-14] MEDS: carvediloL 3.125 MG TABLET PO SCH ×2 (10:18→20:34)
[2019-08-14] MEDS: MAGNESIUM OXIDE 400 MG TABLET PO SCH (10:19)
[2019-08-14] MEDS: LIDOCAINE 5% PATCH TRANSDERM SCH ×2 (10:19→10:24)
[2019-08-14] MEDS: PANTOPRAZOLE 40 MG TABLET PO SCH (10:19)
[2019-08-14] MEDS: SODIUM CHLORIDE 0.9% 1,000 ML IV SCH ×3 (10:30→23:28)
[2019-08-14] MEDS: ENOXAPARIN 30 MG/0.3 ML SYRINGE SUBCUT SCH (15:25)
[2019-08-14] MEDS: MAGNESIUM CITRATE 300 ML BOTTLE PO SCH (19:46)
[2019-08-15] MEDS ORDERED: ALBUTEROL/IPRATROPIUM 3 ML NEB RESP TX STA
[2019-08-15 06:09] LABS: Basophils # 0.1 10*3/uL (0.0-0.2); Basophils % 1.3 % (0.0-0.8); Eosinophils # 0.1 10*3/uL (0.0-0.87); Hematocrit 34.1 VOL% (42.0-52.0); Immature Granulocytes % 8.4 %; Immature Granulocytes Absolute 0.51 #; Lymphocytes # 2.1 10*3/uL (1.4-4.0); Lymphocytes % 34.5 % (21.2-54.2); Mean Corpuscular HGB Conc 32.3 GM/DL (32-36); Mean Corpuscular Volume 89.5 FL (87-102); Mean Platelet Volume 11.6 FL (9.6-12.0); Monocytes % 5.6 % (1.7-12.7); Neutrophils % 49.2 % (38.7-73.9); Platelet Count 205 T/CUMM (130-400); Red Blood Count 3.81 MC/CUMM (3.8-5.5); Red Cell Distribution Width 15.5 % (9.3-17.3); White Blood Count 6.1 T/CUMM (4-12)
[2019-08-15 06:34] LABS: Eosinophils 6 % (0-10); Lymphocytes 27 % (20-55); Platelet Estimate Adequate; Segmented Neutrophils 61 % (50-85); Total Cells Counted 100
[2019-08-15 06:35] LABS: Hypochromasia 1+
[2019-08-15 06:56] LABS: Albumin 2.8 G/DL (3.4-5.0); Bilirubin,Total 4.4 MG/DL (0.2-1.0); Calcium 8.7 MG/DL (8.5-10.1); Osmolality,Calculated 271.8 MOS/KG (273-304); Total Protein 7.3 G/DL (6.4-8.3)
[2019-08-15] MEDS: ALBUTEROL/IPRATROPIUM 3 ML NEB RESP TX SCH ×3 (07:27→23:59)
[2019-08-15] MEDS: PANTOPRAZOLE 40 MG TABLET PO SCH (09:35)
[2019-08-15] MEDS: POTASSIUM CHLORIDE 20 MEQ TABLET PO SCH (09:36)
[2019-08-15] MEDS: SPIRONOLACTONE 25 MG TABLET PO SCH (09:36)
[2019-08-15] MEDS: SOTALOL 80 MG TABLET PO SCH ×2 (09:36→21:16)
[2019-08-15] MEDS: MAGNESIUM OXIDE 400 MG TABLET PO SCH (09:36)
[2019-08-15] MEDS: LIDOCAINE 5% PATCH TRANSDERM SCH (09:37)
[2019-08-15] MEDS: THIAMINE 200 MG/2 ML VIAL IM SCH (09:37)
[2019-08-15] MEDS: PIPERACILLIN/TAZOBACTAM 3,375 MG in SODIUM CHLORIDE 0.9% 100 ML IV SCH ×2 (09:38→16:55)
[2019-08-15] MEDS: MAGNESIUM CITRATE 300 ML BOTTLE PO SCH ×2 (09:40→21:13)
[2019-08-15] MEDS: SODIUM CHLORIDE 0.9% 1,000 ML IV SCH (14:33)
[2019-08-15] MEDS: FUROSEMIDE 40 MG/4 ML VIAL IV SCH (16:45)
[2019-08-15] MEDS: ENOXAPARIN 30 MG/0.3 ML SYRINGE SUBCUT SCH (16:52)
[2019-08-16] MEDS: PIPERACILLIN/TAZOBACTAM 3,375 MG in SODIUM CHLORIDE 0.9% 100 ML IV SCH (01:18)
[2019-08-16 05:45] LABS: Basophils # 0.1 10*3/uL (0.0-0.2); Basophils % 1.7 % (0.0-0.8); Eosinophils # 0.1 10*3/uL (0.0-0.87); Eosinophils % 1.1 % (0.00-10.9); Hematocrit 33.8 VOL% (42.0-52.0); Hemoglobin 11.1 GM/DL (14.0-18.0); Immature Granulocytes % 11.2 %; Immature Granulocytes Absolute 0.73 #; Lymphocytes # 2.1 10*3/uL (1.4-4.0); Lymphocytes % 31.7 % (21.2-54.2); Mean Corpuscular HGB Conc 32.8 GM/DL (32-36); Mean Platelet Volume 11.8 FL (9.6-12.0); Monocytes % 7.1 % (1.7-12.7); Neutrophils % 47.2 % (38.7-73.9); Platelet Count 220 T/CUMM (130-400); Red Blood Count 3.84 MC/CUMM (3.8-5.5); Red Cell Distribution Width 15.5 % (9.3-17.3); White Blood Count 6.5 T/CUMM (4-12)
[2019-08-16 06:08] LABS: Calcium 8.8 MG/DL (8.5-10.1); Osmolality,Calculated 265.2 MOS/KG (273-304)
[2019-08-16 06:29] LABS: Hypochromasia 1+; Lymphocytes 29 % (20-55); Microcytosis 1+; Platelet Estimate Adequate; Segmented Neutrophils 66 % (50-85); Total Cells Counted 100
[2019-08-16] MEDS: ALBUTEROL/IPRATROPIUM 3 ML NEB RESP TX SCH (07:53)
[2019-08-16 09:16] VITALS: BP 128/71
[2019-08-16] MEDS: PANTOPRAZOLE 40 MG TABLET PO SCH (10:15)
[2019-08-16] MEDS: POTASSIUM CHLORIDE 20 MEQ TABLET PO SCH (10:15)
[2019-08-16] MEDS: SOTALOL 80 MG TABLET PO SCH (10:15)
[2019-08-16] MEDS: MAGNESIUM OXIDE 400 MG TABLET PO SCH (10:15)
[2019-08-16] MEDS: MAGNESIUM CITRATE 300 ML BOTTLE PO SCH (10:15)
[2019-08-16] MEDS: THIAMINE 200 MG/2 ML VIAL IM SCH (10:16)
[2019-08-16] MEDS: SPIRONOLACTONE 25 MG TABLET PO SCH (10:16)
[2019-08-16] MEDS: FUROSEMIDE 40 MG/4 ML VIAL IV SCH (10:17)
[2019-08-16] MEDS: LIDOCAINE 5% PATCH TRANSDERM SCH (10:18)
== END 2019-08-16 10:42 | disposition home or self-care (01) | DRG 439 ==
LOC: N.ED 10:07 → N.EDINP 12:46 → N.3E 14:44 → N.TELEN 08-12 15:19
PROVIDERS: ADMIT Family Medicine; ATTEND Family Medicine
PROC: ERCPWSP (ICD-10-PCS; 2019-08-12 12:35)